=== PATIENT | female | born 1990 | race Caucasian/White ===

== ENCOUNTER 2016-12-06 20:43 | Emergency (ER) | payer OTHER ==
[~2016-12-06] VITALS: Ht 157.5 cm; Wt 59.1 kg
[2016-12-06 21:06] VITALS: BP 111/73; RESP 18; O2SAT 100
--- NOTE | 2016-12-06 21:49 | ED.REPORT ---
HPI-Ear Pain/Problem/FB Date of Service Dec 06, 2016 ED Provider: Janes Tapia DO A 26 year old female with a history of MRSA infections presents the ED complaining of right ear pain that began yesterday and has worsened since. The pain is located on the inner and outer ear, and is radiating into the jaw. The pain is severe enough that the pt cannot bite down normally. The pt believes that her symptoms may be related to a pimple that she attempted to pop in the area yesterday. She denies any other known trauma. The pt also denies fever or chills. She is concerned that the area may be infected. Nursing Notes Stated Complaint: RIGHT EAR PAIN/PREVIOUS MRSA Chief Complaint: ENT & Mouth Nursing Notes Reviewed: Yes Allergies: Coded Allergies: acetaminophen (Verified Allergy, Intermediate, rash/vomiting, 12/06/16) oxycodone (Verified Allergy, Intermediate, rash/vomiting, 12/06/16) Penicillins (Verified Allergy, Mild, Rash, 12/06/16) Sulfa (Sulfonamide Antibiotics) (Verified Allergy, Mild, Rash, 12/06/16) cephalexin (Verified Allergy, Mild, Rash, 12/06/16) hydrocodone (Verified Allergy, Mild, Rash, 12/06/16) promethazine (Verified Allergy, Unknown, 12/06/16) tramadol (Unverified Allergy, Unknown, 12/06/16) TAPE (Verified Adverse Reaction, Mild, Rash, 12/06/16) Uncoded Allergies: TYLENOL WITH CODEINE (Allergy, Mild, Hives, 07/07/10) VACCINE, HPV (Allergy, Mild, Rash, 07/07/10) General Time Seen by MD: 21:47 Chief Complaint Ear problem right Hx Obtained From: Patient Arrived By: Walk-in Onset Occurred: 1 day ago Symptom Duration: Since onset Recent Healthcare: No recent doctor visit, No recent hospitalization Similar Sx Previous: Yes Past Medical History Past Medical History MRSA infection (recurrent, requiring hospitalization) Past Surgical History Reports: Tonsillectomy Smoking History Unknown if Ever Smoker Social History Other Social History: Good social support Ambulatory Status Independent Review of Systems Constitutional: Denies: Chills, Fever Ears / Nose / Throat: Reports: Earache right Complete sys rev & neg: except as marked. Additional Review of Systems Respiratory: Denies: Non-productive cough, Shortness of breath Cardiovascular: Denies: Chest pain GI: Denies: Abdominal pain, Vomiting Musculoskeletal: Denies: Back pain, Neck pain Skin: Denies Rash Physical Exam Initial Vital Signs Vital Signs (First) Date Time Temp Pulse Resp B/P Pulse Ox O2 Delivery O2 Flow Rate FiO2 12/06/16 21:06 37.0 80 18 111/73 100 Room Air Initial VS: Reviewed General/Constitutional: Awake, Alert ENT: Airway patent, Mucous membranes moist, Tympanic membs NL 2 mm abrasion in the right inner elias without erythema or drainage tender to the touch external auditory canal normal mastoid tenderness Head / Eyes: Atraumatic, Normocephalic, PERRL, EOMI Neck: Atraumatic, Supple, Full range of motion Respiratory / Chest: Atraumatic, Breath sounds NL, Breath sounds = bilat, No respiratory distress Cardiovascular: Heart rate NL, Regular rhythm, Heart sounds NL Skin: Color NL, No rash, Warm, Dry Neurologic: Oriented X3, Speech NL, No motor deficits, No sensory deficits Abdomen: Atraumatic, Soft, Non-tender Back: Atraumatic, Full range of motion Upper Extremity / MS: Atraumatic, Full range of motion Lower Extremity / Pelvis / MS: Atraumatic, Full range of motion Psychiatric: Affect NL, Mood NL Interpretation & Diagnostics Interpretation & Diagnostics: CT Temporal Bones: IMPRESSION: Normal CT of the temporal bones. Re-Eval/Medical Decision Med Decision/Clinical Course I discussed with the patient that there is no evidence of mastoiditis on temporal bone CT, and that there is no evidence of deep infection on exam. There is no erythema and just a crusting scab, approximately 2 mm in size in the elias of the ear. I considered other etiologies such as trigeminal neuralgia the patient does not have the ice pick lancinating pain. She may have some irritation of the facial nerve however as she notes pain with opening and closing her mouth. There is no evidence of shingles as there was only one lesion and it does not appear to be vesicular. Re-Evaluation/Progress : Time of Eval: 00:10 Patient Status: Condition improved Re-Evaluation/Progress Note: Pt rechecked, who is comfortable. The diagnosis and plan for discharge are discussed. The pt understands and agrees with the plan. All questions are addressed at this time. Counseled Regarding: Diagnosis, Lab results, Need for follow-up, When/why to return to ED Discharge & Departure Primary Impression: Ear pain Laterality: right Qualified Code: H92.01 - Otalgia, right ear Disposition: Home Discharge Condition All VS Reviewed: Yes Condition: Stable Additional Instructions: Thank you for entrusting us with your care. Your evaluation was reassuring. Apply the topical Bacitracin ointment two to three times per day for seven days to prevent infection. Take ibuprofen as directed for pain. Call your primary care physician to arrange a follow up appointment in the next several days. Return to the emergency department if you develop any new or worsening symptoms. Referrals: OTHER,PHYSICIAN (PCP) Nii Vegas MD Scribe Attestation Portions of this note were transcribed by oYgi Bassett. I, Dr. Tapia personally performed the history, physical exam and medical decision-making; I reviewed and confirmed the accuracy of the information in the transcribed note. copies to: Nii Vegas MD, Gary R DO Dec 06, 2016 21:48 YOGI BASSETT Dec 06, 2016 22:13
[2016-12-07 00:15] VITALS: BP 107/82; PULSE 72; RESP 18; O2SAT 98
--- NOTE | 2016-12-07 08:14 | DRSVH ---
PROCEDURE: CT INTERNAL AUDITORY CANAL WITHOUT CONTRAST INDICATIONS: R ear/mastoid pain COMPARISON: None. TECHNIQUE: Noncontrast 0.6 mm thick direct axial and coronal sections acquired through each temporal bone separa tely. For radiation dose reduction, the following was used: automated exposure control, adjustment of mA and/or kV according to patient size. FINDINGS: Image quality: Excellent. RIGHT: External auditory canal: Canal has a normal appearance. Middle ear: The middle ear structures, including the ossicles and tympanic membrane, appear normal. No abnormal fluid or soft tissue density. Inner ear: Inner ear is normally formed and appears unremarkable. Facial nerve appears normal throu ghout is course. Mastoids: Mastoid air cells are clear. LEFT: External auditory canal: Canal has a normal appearance. Middle ear: The middle ear structures, including the ossicles and tympanic membrane, appear normal. No abnormal fluid or soft tissue density. Inner ear: Inner ear is normally formed and appears unremarkable. Facial nerve appears normal throu ghout its course. Mastoids: Mastoid air cells are clear. MISCELLANEOUS: Visualized surrounding bones appear unremarkable. Visualized intracranial structures , including the cerebellopontine angle cisterns, appear normal. IMPRESSION: Negative scan of the temporal bones. Dictated by: Chacha Osborne MD, PhD on 12/07/2016 at 8:09 Approved by: Chacha Osborne MD, PhD on 12/07/2016 at 8:12
== END 2016-12-07 00:19 | disposition home or self-care (01) ==
LOC: SED 20:43
DX: H92.01 Otalgia, right ear (principal); Z88.0 Allergy status to penicillin; Z88.1 Allergy status to other antibiotic agents; Z88.2 Allergy status to sulfonamides; Z88.5 Allergy status to narcotic agent; Z88.8 Allergy status to other drugs, medicaments and biological substances; Z91.048 Other nonmedicinal substance allergy status; Z86.14 Personal history of Methicillin resistant Staphylococcus aureus infection
CPT/HCPCS: 70480; 96372; 99284; J1885